=== PATIENT | male | born 1985 | race African-American/Black ===

== ENCOUNTER 2023-08-26 05:17 | Emergency (ER) | payer BC ==
[~2023-08-26] VITALS: Ht 175.3 cm; Wt 70.5 kg
[~2023-08-26 05:17] MED LIST: AMOXICILLIN 50500 MG PO; NO HOME MEDICATIONS; NORCO 325 MG-51 TAB PO; PEN-VEE K500 MG PO; PREDNISONE20 MG PO; ZITHROMAX 250M250 MG PO
[2023-08-26 05:29] VITALS: BP 139/93; TEMP 99.4
[2023-08-26 07:22] VITALS: PULSE 70
== END 2023-08-26 07:22 | disposition home or self-care (01) ==
LOC: COL.ER 05:17
DX: U07.1 COVID-19 (principal); R50.9 Fever, unspecified; R53.81 Other malaise; R51.9 Headache, unspecified; Z28.310 Unvaccinated for COVID-19